=== PATIENT | female | born 1995 | race Caucasian/White ===

== ENCOUNTER 2018-01-25 10:46 | Emergency (ER) | payer OTHER ==
[2018-01-25] MEDS ORDERED: Ketorolac INJ* 30 MG/ML 1 ML VIAL IV ONE (11:13)
[2018-01-25] MEDS ORDERED: diPHENhydraMINE IV* 50 MG/ML 1 ml VIAL (BENADRYL) IV ONE (11:13)
[2018-01-25] MEDS ORDERED: Metoclopramide IV* 5 MG/ML 2 ML VIAL IV ONE (11:13)
[2018-01-25] MEDS ORDERED: NS 0.9% 1000 ML* 1,000 ML IV ONE (11:13)
[2018-01-25 11:45] LABS: ABS Basophils 0.1 10^3/ul (0-0.2); ABS Eosinophils 0.1 10^3/ul (0-0.6); ABS Lymphocytes 2.5 10^3/ul (1.0-4.8); ABS Monocytes 0.4 10^3/ul (0-0.8); ABS Neutrophils 3.8 10^3/ul (1.5-7.7); ABS Nucleated RBC 0 10^3/ul; Eosinophil % 1.7 % (0-6); Hematocrit 43 % (35-47); Hemoglobin 14.6 g/dl (12.0-16.0); Lymphocyte % 35.9 % (25-47); Mean Corpuscular HGB Conc 34 g/dl (31-36); Mean Corpuscular Hemoglobin 30 pg (27-31); Mean Corpuscular Volume 88 fL (80-97); Mean Platelet Volume 7.5 um3 (7.4-10.4); Nucleated Red Blood Cells % 0.1; Platelet Count 265 10^3/ul (150-450); Red Cell Distribution Width 15 % (10.5-15); White Blood Count 6.9 10^3/ul (3.5-10.8)
--- NOTE | 2018-01-25 12:14 | RAD ---
HISTORY: Headache COMPARISONS: None TECHNIQUE: Multiple contiguous axial CT scans were obtained of the head without intravenous contrast. FINDINGS: HEMORRHAGE/INFARCT: There is no hemorrhage or acute infarct. MASSES/SHIFT: There is no mass or shift. EXTRA-AXIAL SPACES: There are no extra-axial fluid collections. SULCI AND VENTRICLES: The sulci and ventricles are normal in size and position for the patient's stated age. CEREBRUM: There are no focal parenchymal abnormalities. BRAINSTEM: There are no focal parenchymal abnormalities. CEREBELLUM: There are no focal parenchymal abnormalities. VESSELS: The vessels are grossly normal. PARANASAL SINUSES: The paranasal sinuses are clear. ORBITS: The orbits are unremarkable. BONES AND SOFT TISSUE: No bone or soft tissue abnormalities are noted. OTHER: None IMPRESSION: NO ACUTE INTRACRANIAL PATHOLOGY.
[2018-01-25 13:17] VITALS: BP 97/56
--- NOTE | 2018-01-26 16:23 | ED ---
Grady Hernández Thomas scribed for Cleveland Tian MD on 01/25/18 at 1131 . Headache - HPI Summary HPI Summary: The patient is a 22 year old female with a history of migraines complaining of a migraine headache that began today. The pain is rated 4/10 and is described as throbbing. The patient has been having 5-7 migraines per week recently. The patient also complains of neck pain. The patient denies sore throat, fevers, chills, blurred vision, and tinnitus. The patient sees her neurologist at her home in [place]. The patient is on Desvenlafaxine and Rizatriptan. She has never had a CT scan of her head. - History Of Current Complaint Chief Complaint: EDHeadache Stated Complaint: MIGRAINS Time Seen by Provider: 01/25/18 11:01 Hx Obtained From: Patient Onset/Duration: Started hours ago, Still Present Initially Headache Was: Initial Pain Scale(0-10)= - 4 Currently Pain Is: Moderate Timing: Constant Character: Migraine Aggravating Factor: Nothing Allevating Factors: Nothing Associated Signs And Symptoms: Other (Noted In Comments) - Neck pain; NEGATIVE: fever, chills, sore throat, blurred vision, tinnitus - Allergies/Home Medications Allergies/Adverse Reactions: Allergies Allergy/AdvReac Type Severity Reaction Status Date / Time GLUTEN Allergy Headache Uncoded 01/25/18 11:08 Home Medications: Home Medications Desvenlafaxine [Desvenlafaxine ER] 50 mg PO DAILY 01/25/18 [History Confirmed ] Rizatriptan Benzoate [Rizatriptan Benzoate Odt] 10 mg PO SEE INSTRUCTIONS PRN [History Confirmed 01/25/18] Testosterone [Testosterone] 0.35 ml IM WEEKLY 01/25/18 [History Confirmed ] traZODone TAB* [Desyrel TAB*] 37.5 mg PO BEDTIME 01/25/18 [History Confirmed 10/02] PMH/Surg Hx/FS Hx/Imm Hx Endocrine/Hematology History: Denies: Hx Diabetes Cardiovascular History: Denies: Hx Hypertension Neurological History: Reports: Hx Migraine - Surgical History Surgery Procedure, Year, and Place: None Infectious Disease History: No Infectious Disease History: Denies: Traveled Outside the [place] in Last 30 Days - Family History Known Family History: Positive: Cardiac Disease, Diabetes - Social History Occupation: Student Alcohol Use: None Substance Use Type: Reports: None Smoking Status (MU): Never Smoked Tobacco Review of Systems Negative: Fever, Chills Negative: Blurred Vision Negative: Sore Throat, Other - tinnitus Positive: Other - Neck pain Positive: Headache All Other Systems Reviewed And Are Negative: Yes Physical Exam - Summary Physical Exam Summary: VITAL SIGNS: Reviewed. GENERAL: Patient is a well-developed and nourished female who is lying comfortable in the stretcher. Patient is not in any acute respiratory distress. HEAD AND FACE: No signs of trauma. No ecchymosis, hematomas or skull depressions. No sinus tenderness. EYES: PERRLA, EOMI x 2, No injected conjunctiva, no nystagmus. EARS: Hearing grossly intact. Ear canals and tympanic membranes are within normal limits. MOUTH: Oropharynx within normal limits. NECK: Supple, trachea is midline, no adenopathy, no JVD, no carotid bruit, no c- spine tenderness, neck with full ROM. CHEST: Symmetric, no tenderness at palpation LUNGS: Clear to auscultation bilaterally. No wheezing or crackles. CVS: Regular rate and rhythm, S1 and S2 present, no murmurs or gallops appreciated. ABDOMEN: Soft, non-tender. No signs of distention. No rebound no guarding, and no masses palpated. Bowel sounds are normal. EXTREMITIES: FROM in all major joints, no edema, no cyanosis or clubbing. NEURO: Alert and oriented x 3. No acute neurological deficits. Speech is normal and follows commands. SKIN: Dry and warm Triage Information Reviewed: Yes Vital Signs On Initial Exam: Initial Vitals Temp Pulse Resp BP Pulse Ox 98.1 F 79 15 102/75 97 01/25/18 10:54 01/25/18 10:54 01/25/18 10:54 01/25/18 10:54 01/25/18 10:54 Vital Signs Reviewed: Yes - Hann[place] Coma Scale Best Eye Response: 4 - Spontaneous Best Motor Response: 6 - Obeys Commands Best Verbal Response: 5 - Oriented Coma Scale Total: 15 Diagnostics - Vital Signs Vital Signs Temp Pulse Resp BP Pulse Ox 01/25/18 10:54 98.1 F 79 15 102/75 97 - Laboratory Result Diagrams: 01/25/18 11:37 01/25/18 11:37 Lab Statement: Any lab studies that have been ordered have been reviewed, and results considered in the medical decision making process. - CT CT Brain W/O CT Interpretation: No Acute Changes - No acute intracranial pathology. Dr. Tian has reviewed this report. CT Interpretation Completed By: Radiologist Re-Evaluation - Re-Evaluation First Eval Re-Evaluation Time: 12:27 Comment: The patient has no headache. She is asymptomatic. Results discussed. Patient will be discharged. Headache Course/Dx - Course Assessment/Plan: The patient is a 22 year old female with a history of migraines complaining of a migraine headache that began today. Test results are without significant abnormalities. The patient reports that she has been having headaches for years. No one has yet done a head CT. CT Head shows no acute intracranial pathology GCS is 15. After the patient was given IV fluids, Benadryl, Toradol, and Reglan, all of her symptoms resolved. She is asymptomatic. I re-examined the patient before discharge, and she was neurologically intact. Therefore, the patient will be discharged home to follow up with neurology. - Diagnoses Provider Diagnoses: Migraine headache Discharge - Sign-Out/Discharge Documenting (check all that apply): Discharge - Discharge Plan Condition: Stable Disposition: HOME Patient Education Materials: Migraine Headache (ED) Referrals: Hunter Baxter MD [Medical Doctor] - Additional Instructions: Follow up with Dr. Baxter, neurology, in three days. Return to the emergency department for any new or worsening symptoms. The documentation as recorded by the Grady whitten Thomas accurately reflects the service I personally performed and the decisions made by , Cleveland Tian MD.
== END 2018-01-25 13:16 | disposition home or self-care (01) ==
LOC: ED 10:46
DX: G43.909 Migraine, unspecified, not intractable, without status migrainosus (principal)
CPT/HCPCS: 36415; 70450; 80053; 82375; 84702; 85025; 85652; 96360; 96374; 96375; 99282; J1200; J1885; J2765